=== PATIENT | male | born 1995 | race African-American/Black ===

== ENCOUNTER 2024-12-19 22:00 | Emergency (ER) | payer SELFPAY ==
[~2024-12-19] VITALS: Ht 177.8 cm; Wt 100.0 kg
[2024-12-19 22:05] VITALS: O2SAT 97
[2024-12-19 22:56] LABS: BASOPHILS % 0.5 % (0.0-2.0); DIFFERENTIAL COMMENT 0; EOSINOPHILS % 4.6 % (0.0-5.0); HEMATOCRIT. 42.8 % (42.0-52.0); HEMOGLOBIN. 14.7 g/dL (14.0-18.0); LYMPHOCYTES % 14.4 % (20.0-50.0); MEAN CORPUSCULAR HEMOGLOBIN 27.2 pg (28.0-32.0); MEAN CORPUSCULAR HGB CONC 34.4 g/dL (31.0-37.0); MEAN CORPUSCULAR VOLUME 79.1 fL (80.0-94.0); MEAN PLATELET VOLUME 9.9 fl (7.4-10.4); MONOCYTES % 6.5 % (2.0-8.0); PLATELET 248 x1000/uL (130-400); RED BLOOD CELL COUNT 5.41 mill/uL (4.7-6.1)
[2024-12-19 22:58] LABS: CLARITY URINE CLEAR (CLEAR); COLOR URINE YELLOW (YELLOW); GLUCOSE URINE 3+ (NEGATIVE); KETONES URINE NEGATIVE (NEGATIVE); LEUKOCYTE ESTERASE URINE NEGATIVE (NEGATIVE); NITRITE URINE NEGATIVE (NEGATIVE); OCCULT BLOOD URINE NEGATIVE (NEGATIVE); PH URINE 5.5 (4.5-8.0); PROTEIN URINE 1+ (NEGATIVE); SPECIFIC GRAVITY URINE 1.028 (1.005-1.030); UROBILINOGEN URINE 0.2 E.U./dL (0.2-1.0)
[2024-12-19 23:05] LABS: CARBON DIOXIDE 26 mEq/L (21-32); CHLORIDE 95 mEq/L (98-107); INR 0.9; POTASSIUM 4.9 mEq/L (3.5-5.1); SODIUM 131 mEq/L (136-145)
[2024-12-19 23:06] LABS: *AMPHETAMINES SCREEN URINE NEGATIVE (NEGATIVE); *BARBITURATES SCREEN URINE NEGATIVE (NEGATIVE); *BENZODIAZEPINES SCREEN URINE NEGATIVE (NEGATIVE); *COCAINE SCREEN URINE NEGATIVE (NEGATIVE); CANNABINOID URINE SCREEN NEGATIVE (NEGATIVE); ECSTASY MDMA SCREEN URINE NEGATIVE (NEGATIVE); METHADONE URINE SCREEN NEGATIVE (NEGATIVE); OPIATES URINE SCREEN NEGATIVE (NEGATIVE); PHENCYCLIDINE URINE SCREEN NEGATIVE (NEGATIVE)
[2024-12-19 23:06] LABS: CALCIUM 9.2 mg/dL (8.7-10.4)
[2024-12-19 23:11] LABS: ETHANOL BLOOD < 10 mg/dL (<10); UREA NITROGEN BLOOD 21 mg/dL (9-23)
[2024-12-19 23:12] LABS: ALANINE AMINOTRANSFERASE 27 IU/L (10-49); ASPARTATE AMINOTRANSFERASE 13 IU/L (<34)
[2024-12-19 23:13] LABS: ALBUMIN 4.2 g/dL (3.2-4.8); BILIRUBIN DIRECT 0.1 mg/dL (<=3.0); BILIRUBIN TOTAL 0.4 mg/dL (0.1-1.0); PROTEIN TOTAL 7.5 g/dL (6.0-8.3)
[2024-12-19 23:18] LABS: BACTERIA URINE 1+; RBC URINE NONE SEEN /hpf (0-2); SQUAMOUS EPITHELIAL CELL URINE FEW /lpf (RARE/1+); WBC URINE 0-2 /hpf (0-2)
[2024-12-19 23:19] LABS: YEAST URINE 2+
[2024-12-19] MEDS: SODIUM CHLORIDE 0.9% 1,000 ML IV ONE (23:25)
[2024-12-19 23:26] LABS: GLUCOSE 629 mg/dL (70-105)
[2024-12-20 01:03] LABS: PHOSPHORUS 3.3 mg/dL (2.5-4.9)
[2024-12-20] MEDS: INSULIN REGULAR (HUMULIN R) 1000UNITS/10ML VIAL SUBCUT NR (01:23)
[2024-12-20] MEDS ORDERED: ACETAMINOPHEN 325MG TABLET PO PRN (02:30)
[2024-12-20] MEDS ORDERED: CLONIDINE 0.1MG TABLET PO PRN (02:30)
[2024-12-20] MEDS ORDERED: GUAIFENESIN 200MG/10ML SUGAR FREE UDC PO PRN (02:30)
[2024-12-20] MEDS ORDERED: ONDANSETRON HCL 4MG/2ML INJ IV PRN (02:30)
[2024-12-20] MEDS ORDERED: DOCUSATE SODIUM 100MG CAPSULE PO PRN (02:30)
[2024-12-20] MEDS ORDERED: IPRATROPIUM/ALBUTEROL 0.5-3(2.5)MG/3ML NEB HHN PRN (02:30)
[2024-12-20] MEDS ORDERED: DEXTROSE 50% WATER 50ML SYRINGE IV PRN (02:30)
[2024-12-20] MEDS ORDERED: MAGNESIUM/ALUMINUM HYDROXIDE/SIMETHICONE 30ML UDC PO PRN (02:30)
[2024-12-20] MEDS ORDERED: METF-414 MT (02:31)
[2024-12-20] MEDS ORDERED: METFORMIN HCL 500MG TABLET PO ONE (02:45)
[2024-12-20] MEDS ORDERED: INSULIN REGULAR (HUMULIN R) 1000UNITS/10ML VIAL IV NR (02:45)
[2024-12-20] MEDS ORDERED: INSULIN LISPRO 100 UNITS/ML SUBCUT NR (02:45)
[2024-12-20] MEDS ORDERED: MAGNESIUM 2 G PREMIX 50 ML IV NR (03:00)
[2024-12-20 03:05] VITALS: BP 118/65; PULSE 72; RESP 18; TEMP 37.1; O2SAT 98
[2024-12-20] MEDS ORDERED: INSULIN LISPRO 100 UNITS/ML SUBCUT SCH ×2 (07:50→08:20)
[2024-12-20] MEDS ORDERED: ENOXAPARIN 30MG/0.3ML SYR SUBCUT SCH (09:00)
[2024-12-20] MEDS ORDERED: BLOOD SUGAR DIAGNOSTIC STRIP TEST SCH (09:00)
[2024-12-20] MEDS ORDERED: INSULIN GLARGINE 100 UNITS/ML SUBCUT SCH (10:00)
[2024-12-20] MEDS ORDERED: FAMOTIDINE 20MG TABLET PO SCH (21:00)
== END 2024-12-20 03:32 | disposition home or self-care (01) ==
LOC: ER 22:00 → ENRESERV 12-20 02:08 → ER 12-20 03:32
DX: E11.65 Type 2 diabetes mellitus with hyperglycemia (principal); I10 Essential (primary) hypertension; Z79.84 Long term (current) use of oral hypoglycemic drugs; Z79.899 Other long term (current) drug therapy
CPT/HCPCS: 80076; 80305; 80048; 81003; 80320; 82962 ×2; 83690; 83735; 84100; 85025; 85610; 36415; 96360; 96361; 99285; 96372; J7030; J1815; G0480